=== PATIENT | male | born 1970 | race Two or more races ===

== ENCOUNTER 2018-12-16 12:12 | Emergency (ER) | payer MEDICAID ==
[~2018-12-16] VITALS: Ht 167.6 cm; Wt 98.0 kg
[2018-12-16 12:21] VITALS: BP 171/121
[2018-12-16] MEDS ORDERED: SOD BORATE/BORIC AC/H2O/NACL 118 ML BOTTLE OP ONE (12:30)
== END 2018-12-16 12:57 | disposition home or self-care (01) ==
LOC: ER 12:26
DX: T15.92XA Foreign body on external eye, part unspecified, left eye, initial encounter (principal); T15.91XA Foreign body on external eye, part unspecified, right eye, initial encounter; I10 Essential (primary) hypertension; E78.5 Hyperlipidemia, unspecified; K21.9 Gastro-esophageal reflux disease without esophagitis; Z60.2 Problems related to living alone; W22.8XXA Striking against or struck by other objects, initial encounter; Y93.89 Activity, other specified; Y92.89 Other specified places as the place of occurrence of the external cause; Y99.8 Other external cause status
CPT/HCPCS: 99282; J7030